=== PATIENT | female | born 1995 | race Caucasian/White ===

== ENCOUNTER → 2020-08-04 10:05 | Outpatient (CLI) | payer BC, SELFPAY ==
[2020-08-04 09:37] VITALS: BMI 24.5
[2020-08-04 11:23] LABS: HIV - WCH Non-Reactive (Nonreactive)
[2020-08-04 15:39] LABS: Chlamydia Trachomatis by PCR Negative (Negative); Neisserai gonorrhoeae by PCR Negative (Negative); Probe Check PASS; Sample Adequacy Control PASS; Specimen Processing Control PASS
[2020-08-05 20:08] LABS: HCV Quant. RNA PCR HCV Not Detected IU/mL (.)
[2020-08-05 21:14] LABS: HSV 1 IgG < 0.91 index (0.00-0.90); HSV 2 IgG < 0.91 index (0.00-0.90)
[2020-08-08 17:32] LABS: HPV Reflexed? NOT INDICATED
[2020-08-11 03:02] LABS: Rapid Plasmin Reagin (RPR) NONREACTIVE (NONREACTIVE)
== END ==
PROVIDERS: PCP Family Medicine; Referring Provider Nurse Practitioner Women's Health; Visit Provider Nurse Practitioner Women's Health
DX: Z12.4 Encounter for screening for malignant neoplasm of cervix (principal); Z11.3 Encounter for screening for infections with a predominantly sexual mode of transmission
CPT/HCPCS: 36415; 86592; 86695; 86696; 86703; 87491; 87522; 87591; 88175; G0145